=== PATIENT | male | born 2005 | race Caucasian/White ===

== ENCOUNTER → 2023-09-27 22:27 | Day surgery (SDC) | payer BC, SELFPAY ==
[2023-09-27 20:14] VITALS: BP 133/79
[2023-09-27 20:37] VITALS: BMI 19.4
--- NOTE | 2023-09-27 20:37 | ED.GENMED ---
History of Present Illness
General
Chief Complaint: Esophageal Problem
Time Seen by Provider: 09/27/23 20:28
Travel History
Have you had any contact with someone who has COVID-19?: No
Do you have any symptoms of coronavirus? Fever > 100 degrees, chills, cough, shortness of breath, sore throat, loss of taste or smell, muscle aches, or headache?: No
History of Present Illness
History of Present Illness:
18-year-old male presents the emergency department for suspected food bolus. He has had a history of food bolus related to swallowing meat. Prior to endoscopy on 1 occasion in the past. Has not been able to tolerate secretions for the past hour
Review of Systems
Review of Systems
Allergies reviewed?: Yes
All Other Systems: ROS reviewed and negative except as documented in HPI and ROS
Phy Exam
Physical Exam
Physical Exam:
GEN: Well appearing, NAD, WDWN
HEENT: Oral mucosa moist, no scleral icterus
Cardiac: Regular rate
Lung: No respiratory distress, no tachypnea
MSK: No gross deformity or injuries
Skin: Good color, no pallor or jaundice, no rashes
Neuro: AO x3, moves all extremities freely
Psych: Calm, cooperative
Course
Orders/Labs/Results
Orders:
Orders
09/27/23 20:37
Glucagon [GlucaGen] 2 mg IV NOW STA
Ondansetron Injectable [Zofran] 4 mg IV NOW STA
09/27/23 22:07
Dexamethasone Sod Phosphate [Decadron] 20 mg .ROUTE .STK-MED ONE
Fentanyl Citrate/Pf [Sublimaze] 100 mcg .ROUTE .STK-MED ONE
Lidocaine 2% Mpf [Xylocaine Mpf 2%] 100 mg .ROUTE .STK-MED ONE
Ondansetron Injectable [Zofran] 4 mg .ROUTE .STK-MED ONE
Rocuronium [place] [Rocuronium] 50 mg .ROUTE .STK-MED ONE
Sugammadex Sodium [Bridion] 200 mg .ROUTE .STK-MED ONE
09/27/23 22:08
Propofol [Diprivan] 20 ml .ROUTE .STK-MED
Succinylcholine Chloride [Succinylcholine] 200 mg .ROUTE .STK-MED ONE
09/27/23 22:59
HYDROmorphone [Dilaudid] 0.25 mg IV PACU-Q5MPRN PRN
HYDROmorphone [Dilaudid] 0.5 mg IV PACU-Q5MPRN PRN
Meperidine [Demerol] 12.5 mg IV PACU-Q5MPRN PRN
Ondansetron Injectable [Zofran] 4 mg IV PACU-ONCEPRN PRN
Prochlorperazine [Compazine] 5 mg IV PACU-ONCEPRN PRN
Notify MD As Directed
Notify physician if: for SDS patients with known or suspected sleep obstructive sleep apnea, monitor in the
PACU.
Notify MD for any apneic/desaturation episodes
O2 Therapy [RESP] Urgent
Titrate/Wean O2 to maintain O2 sat greater than (%): 92
Special Instructions: -Provide supplemental oxygen to achieve O2 sat of 92% or greater.
-After 15 min, may wean O2 and discontinue if patient is able to maintain O2 sat of 92%
or greater during recovery period.
If patient is a discharge home, without oxygen therapy, notify anestheiologist if
unable to maintain O2 SAT of 92% or greater on room air for MD clearance.
09/27/23 23:00
Normosol (Mult Electrolytes) [Normosol-R] 1,000 ml IV PER PROTOCOL
Vital Signs
Initial and Last Documented VS:
Initial Vital Signs
Temp Pulse Resp BP Pulse Ox
98.7 F 90 18 133/79 97
09/27/23 20:14 09/27/23 20:14 09/27/23 20:14 09/27/23 20:14 09/27/23 20:14
Last Documented Vital Signs
Temp Pulse Resp BP Pulse Ox
99.3 F 62 18 139/69 97
09/27/23 23:55 09/27/23 23:55 09/27/23 23:55 09/27/23 23:55 09/27/23 20:14
MDM/Problems Addressed
MDM/Problems Addressed:
Patient was not able to tolerate secretions or fluids despite IV glucagon and manual techniques including jumping up and down. GI made aware and will take the patient for endoscopic intervention
*Critical Care Note
Total Time (30-74mins, 75-104mins- exclusive of procedures): Not Applicable
ED Attending Note
-
Portions of this chart may have been created with voice recognition software.� Occasional wrong word or��sound alike� substitutions may have occurred due to the inherent limitations of voice recognition software.
Discharge Plan
Departure
Patient Disposition: GI LAB
Date of Disposition: 09/27/23
Time of Disposition: 21:15
Presentation/result/management discussed w/ accepting MD/DO: GI
Discharge Problem:
Food impaction of esophagus
Interventions
Interventions:
*Risk Screen - Suicide Last Done: 09/27/23 20:14
*General Assessment Last Done: 09/27/23 20:14
*Neglect/Abuse Screening Last Done: 09/27/23 20:14
*Nursing Disposition Last Done: 09/27/23 22:22
YS-Kfesoz-Lrhxuzyjwt Assessment Last Done: 09/27/23 20:37
ED-EENT Assessment Last Done: 09/27/23 20:37
Discharge Date and Time
Discharge Date/Time: 09/27/23 22:22
[2023-09-27] MEDS: GlucaGen 2 MG IV (20:45)
[2023-09-27] MEDS: ZOFRAN 4 MG IV (20:45)
[2023-09-27 23:10] VITALS: BP 129/63
[2023-09-27 23:15] VITALS: BP 126/64
[2023-09-27 23:30] VITALS: BP 126/70
[2023-09-27 23:45] VITALS: BP 127/82; BP 129/82
[2023-09-27 23:55] VITALS: BP 139/69
== END ==
LOC: EMR 20:09 → GI 22:27
PROVIDERS: ATTENDING PHYSICIAN Internal Medicine Gastroenterology; EMERGENCY PHYSICIAN Student in an Organized Health Care Education/Training Program; FAMILY PHYSICIAN Family Medicine
DX: T18.128A Food in esophagus causing other injury, initial encounter (principal); W44.F3XA Food entering into or through a natural orifice, initial encounter; K22.89 Other specified disease of esophagus; K20.0 Eosinophilic esophagitis
CPT/HCPCS: 43247; 43239; 88305; 96374; 99284; J1610